=== PATIENT | male | born 1975 | race African-American/Black ===

== ENCOUNTER → 2017-08-06 | Outpatient (CLI) | payer OTHER | END | disposition home or self-care (01) | LOC: KCIC MRI 08:05 | DX: S83.281A Other tear of lateral meniscus, current injury, right knee, initial encounter (principal); M17.11 Unilateral primary osteoarthritis, right knee; M94.261 Chondromalacia, right knee; X58.XXXA Exposure to other specified factors, initial encounter; Y93.89 Activity, other specified; Y92.89 Other specified places as the place of occurrence of the external cause; Y99.8 Other external cause status | CPT/HCPCS: 73721 ==

== ENCOUNTER 2018-07-27 21:10 | Emergency (ER) | payer OTHER, SELFPAY ==
[~2018-07-27] VITALS: Ht 185.4 cm; Wt 102.1 kg
[~2018-07-27 21:10] MED LIST: LANS30CA PO; OXYC1TAB7 PO
[2018-07-27] MEDS ORDERED: HYDROmorphone 2 MG/ML VIAL IV ONE (21:45)
[2018-07-27] MEDS ORDERED: ONDANSETRON PF 4 MG/2 ML VIAL. IV ONE (21:45)
[2018-07-27] MEDS ORDERED: KETOROLAC 15 MG/ML VIAL. IV ONE (21:45)
--- NOTE | 2018-07-27 21:45 | PHYS DOC ---
General Chief Complaint: POST-OP PROBLEM Stated Complaint: bleeding from knee Time Seen by MD: 21:15 Source: patient Exam Limitations: no limitations History of Present Illness Initial Comments Patient is a 43-year-old male status post right knee arthroscopic surgery yesterday at outpatient surgical center per Dr. David Rueda with acute right knee pain starting approximately 2 hours prior to ED arrival. Patient's states his pain had been relatively well controlled with oxycodone every 4-6 hours. He was sleeping when his pain abruptly worsened over a two-hour period patient has been partial weightbearing with toe tap and this are. He does not recall twisting, bending prior to keep pain worsening as he was sleeping. No other acute symptoms or complaints. Onset: just prior to arrival Severity: severe Pain/Injury Location: right knee Method of Injury: twisted Modifying Factors: improves with immobilization Allergies: Coded Allergies: No Known Drug Allergies (Unverified , 12/29/15) Past Medical History Medical History: no pertinent history Review of Systems Musculoskeletal: see HPI Physical Exam General Appearance: moderate distress HEENT: PERRL/EOMI Neck: full range of motion Cardiovascular/Respiratory: regular rate, rhythm Knees: left knee joint effusion, left knee soft tissue tenderness (right knee pain, swelling with restricted range of motion, he does not feel tight, dried blood over surgical incisions, no active bleeding) Psychiatric: alert, oriented x 3 Orders, Labs, Meds Lab work, imaging studies reviewed. Case discussed with Dr. Hernandez, commands supportive care and early orthopedic follow-up if symptoms not improved. BRIE YOON DO July 27, 2018 21:45
--- NOTE | 2018-07-27 22:09 | RAD ---
Three-view right knee radiographs 02/05/2019 CLINICAL HISTORY: Postoperative right knee pain. Portable AP, oblique and crosstable lateral digital radiographs of the right knee were obtained. Comparison study dated 07/11/2018. Subcutaneous emphysema is seen within the anterior soft tissues of the right knee consistent with the patient's history of surgery. Mild to moderate degenerative changes are seen involving all 3 compartments of the right knee, particularly involving the lateral compartment. Moderate to large right knee joint effusion is seen. Air is seen within the suprapatellar bursa likely related to surgery. IMPRESSION: Moderate to large right knee joint effusion. Air is seen consistent with the patient's history of surgery. No acute osseous abnormality is noted. Electronically signed by: Clay Fox MD (07/27/2018 10:06 PM) [facility]
[2018-07-27 22:15] LABS: BASO % 0 % (0-3); EOS % 0 % (0-3); HEMATOCRIT 40.7 % (39.0-53.0); HEMOGLOBIN 13.6 g/dL (13.0-17.5); LYMPH % 9 % (24-48); MEAN CORPUSCULAR HEMOGLOBIN 31 pg (25-35); MEAN CORPUSCULAR HGB CONC 33 g/dL (31-37); MEAN CORPUSCULAR VOLUME 93 fL (79-100); MONO % 9 % (0-9); NEUT # 9.2 x10^3uL (1.8-7.7); NEUT % 82 % (31-73); PLATELET COUNT 190 x10^3/uL (140-400); RED CELL DISTRIBUTION WIDTH 14.1 % (11.5-14.5); WHITE BLOOD COUNT 11.3 x10^3/uL (4.0-11.0)
[2018-07-27 22:24] LABS: CALCIUM 8.8 mg/dL (8.5-10.1); CREATININE 0.7 mg/dL (0.7-1.3); GFR 148.9; POTASSIUM 3.5 mmol/L (3.5-5.1)
[2018-07-27 22:36] VITALS: BP 240/102
== END 2018-07-27 22:47 | disposition home or self-care (01) ==
LOC: ER 21:10
DX: M25.461 Effusion, right knee (principal)
CPT/HCPCS: 36415; 73562; 80048; 85025; 96374; 96375; 99285; J1170; J1885; J2405

== ENCOUNTER → 2020-01-28 | Outpatient (CLI) | payer OTHER ==
[~2020-01-28] MED LIST changes: +NORMAL SALINE IV ONE; +SINCALIDE IV ONE
--- NOTE | 2020-01-28 13:56 | RAD ---
Examination: Hepatobiliary Scan: History: Nausea, vomiting. Technique: 5.5 mCi technetium 99m Choletec was administered intravenously and spot views were obtained on the gamma camera for a Nuclear Medicine hepatobiliary scan. 1.9 mcg of CCK drip was administered over 30 minutes and the region of interest was drawn around the gallbladder and gallbladder ejection fraction was calculated. Findings: There is rapid uptake of activity from the blood pool and concentration in the liver. Activity seen in the gallbladder and small bowel. There is a rapid response of the gallbladder to CCK and the gallbladder ejection fraction is 96% which is normal. Impression: Normal hepatobiliary scan. Normal gallbladder function. Electronically signed by: Draed Kaye MD (01/28/2020 1:53 PM) [id number]
== END ==
LOC: NM 11:24
PROVIDERS: ATTEND Family Medicine
DX: R11.10 Vomiting, unspecified (principal); R10.11 Right upper quadrant pain
CPT/HCPCS: 78227; A9537; J2805